=== PATIENT | male | born 1945 | race Caucasian/White ===

== ENCOUNTER → 2023-04-27 13:07 | Outpatient (REF) | payer BC, SELFPAY ==
[2023-04-27 14:33] LABS: % Basophils 0.9 % (0-2); % Eosinophils 3.5 % (0-6); % Immature Granulocytes 0.2 % (0-0.5); % Lymphocytes 23.1 % (20.5-51.1); % Monocytes 9.7 % (1.7-9.3); % Neutrophils 62.6 % (42.2-75.2); Absolute Basophils 0.1 10^3/uL (0-0.2); Absolute Eosinophils 0.3 10^3/uL (0-0.7); Absolute Lymphocytes 2.1 10^3/uL (1.2-3.4); Absolute Monocytes 0.9 10^3/uL (0.1-0.6); Absolute Neutrophils 5.6 10^3/uL (1.4-6.5); Hemoglobin 14.8 g/dL (13.0-18.0); Mean Corp Hgb Conc. 33.6 g/dL (33.0-37.0); Mean Corpuscular Hgb 31.3 pg (27.0-31.0); Nucleated Red Blood Cells % 0 % (-); Platelet Count 200 10^3/uL (130-400); Red Blood Cell Count 4.73 10^6/uL (4.70-6.10); Red Cell Dist. Width 13.5 % (11.5-14.5); White Blood Cell Count 8.9 10^3/uL (4.8-10.8)
[2023-04-27 15:53] LABS: ALT (SGPT) 21 U/L (0-50); AST (SGOT) 31 U/L (17-59); Albumin 4.4 g/dl (3.5-5.0); Alkaline Phosphatase 80 U/L (38-126); Blood Urea Nitrogen 16 mg/dl (9-20); Calcium 9.5 mg/dl (8.4-10.2); Carbon Dioxide 29 mmol/L (22-30); Chloride 100 mmol/L (98-107); Glucose 98 mg/dl (70-99); HDL Cholesterol 53 mg/dl; LDL Cholesterol, Calculated 60 mg/dl; Potassium 4.4 mmol/L (3.5-5.1); Sodium 137 mmol/L (135-145); Total Bilirubin 0.8 mg/dl (0.2-1.3); Total Cholesterol 125 mg/dl (50-199); Total Protein 7.2 g/dl (6.3-8.2); Triglyceride 63 mg/dl (10-149); Very Low Density Lipoprotein 12 mg/dl (0-30); eGFR > 60.00
[2023-04-27 16:20] LABS: PSA, Total - Screen 1.24 ng/ml (0.0-4.0)
== END ==
LOC: REG 13:07
PROVIDERS: ATTENDING PHYSICIAN Family Medicine
DX: I10 Essential (primary) hypertension (principal); J44.9 Chronic obstructive pulmonary disease, unspecified; E78.00 Pure hypercholesterolemia, unspecified; I73.9 Peripheral vascular disease, unspecified
CPT/HCPCS: 36415; 80053; 80061; 85025; G0103

== ENCOUNTER 2023-08-11 04:42 | Emergency (ER) | payer BC, SELFPAY ==
[2023-08-11 04:45] VITALS: BP 157/69
[2023-08-11 05:07] VITALS: BP 120/62
[2023-08-11 05:19] LABS: % Basophils 0.8 % (0-2); % Eosinophils 2.3 % (0-6); % Immature Granulocytes 0.4 % (0-0.5); % Lymphocytes 8.5 % (20.5-51.1); % Monocytes 11.7 % (1.7-9.3); % Neutrophils 76.3 % (42.2-75.2); Absolute Basophils 0.1 10^3/uL (0-0.2); Absolute Eosinophils 0.2 10^3/uL (0-0.7); Absolute Lymphocytes 0.7 10^3/uL (1.2-3.4); Absolute Neutrophils 6.5 10^3/uL (1.4-6.5); Hematocrit 37.6 % (39.0-52.0); Hemoglobin 13.6 g/dL (13.0-18.0); Mean Corp Hgb Conc. 36.2 g/dL (33.0-37.0); Mean Corpuscular Hgb 31.5 pg (27.0-31.0); Mean Platelet Volume 9.7 fL (7.4-10.4); Nucleated Red Blood Cells % 0 % (-); Platelet Count 183 10^3/uL (130-400); Red Blood Cell Count 4.32 10^6/uL (4.70-6.10); White Blood Cell Count 8.6 10^3/uL (4.8-10.8)
--- NOTE | 2023-08-11 05:20 | ED.GENMED ---
History of Present Illness
<Isia Garcia MD, Resident - Last Filed: 08/11/23 06:15>
General
Chief Complaint: Weakness
Source: patient
Time Seen by Provider: 08/11/23 05:08
History of Present Illness
History of Present Illness:
77 year old male with PMH HTN, HLD, PE, tobacco user presented to the ED with c/o fever, fatigue which started this morning. He drove himself to . Patient states that all day he was smoking cigarettes and drinking tea with no energy to move or do
anything at home. He has been smoking for over 50 years. His temp at home was 102 F. He reports of barking cough which has been ongoing for couple weeks. Patient has not been diagnosed with COPD as he states. He has a history of PE in right lung
in 2018 for which he was started on Eliquis for 3 months. He is currently not on anticoagulants. He takes baby ASA. Patient did not take a Covid test at home.
Past History
<Isai Garcia MD, Resident - Last Filed: 08/11/23 06:15>
Past History
ED Past Medical History: HTN, Other (heart murmur) and Other (joint pain)
Social History
Tobacco: Smoker
Alcohol: Occasional
Drug: None
Personal: Single
Living: other (With a friend)
Employment: Retired
Review of Systems
<Isai Garcia MD, Resident - Last Filed: 08/11/23 06:15>
Review of Systems
Constitutional: Reports fever and fatigue
Respiratory: Reports cough
Phy Exam
<Isai Garcia MD, Resident - Last Filed: 08/11/23 06:15>
General Physical Exam
General Presentation: no apparent distress
General Mental: alert
Cardiovascular Exam
Cardiovascular Exam: regular rate/rhythm
Pulmonary Exam
Pulmonary Exam: no rales, no crackles and decreased breath sounds
Course
<Isai Garcia MD, Resident - Last Filed: 08/11/23 06:15>
Orders/Labs/Results
Orders:
Orders
08/11/23 04:57
EKG [Electrocardiogram (*1)] Urgent
Reason for Study: Chest Pain
EKG- Treatment ONCE
08/11/23 05:00
Cardiac Monitoring- Treatment ONCE
IV Insert/Care/Rem.- Treatment PRN
CR Chest - 2 Views Urgent
Comment:
Reason For Exam: suspected infection
O2 Therapy [RESP] Urgent
Titrate/Wean O2 to maintain O2 sat greater than (%): 93
Special Instructions: TO MAINTAIN CONTINUOUS O2 SATS > OR = 93%
Pulse Ox/cont/shift [RESP] Urgent
Quantity: 1
Special Instructions: CONTINUOUS
08/11/23 05:09
Complete Blood Count/With Diff Urgent
Comprehensive Metabolic Panel Urgent
Lactic Acid Q4H
Comment: ON ICE, CANCEL 2ND ORDER IF FIRST LACTIC ACID LEVEL <2
Blood Culture Urgent
OWEN Source: Blood/Venous
Specimen Description:
08/11/23 05:10
COVID-19 Antigen Urgent
Source: Nasal Swab
Abnormal Lab Results
08/11/23 08/11/23
05:09 05:10
RBC 4.32 L 10^6/uL
(4.70-6.10)
Hct 37.6 L %
(39.0-52.0)
MCH 31.5 H pg
(27.0-31.0)
Absolute Lymphs (auto) 0.7 L 10^3/uL
(1.2-3.4)
Absolute Monos (auto) 1.0 H 10^3/uL
(0.1-0.6)
Neutrophils % 76.3 H %
(42.2-75.2)
Lymphocytes % 8.5 L %
(20.5-51.1)
Monocytes % 11.7 H %
(1.7-9.3)
Sodium 133 L mmol/L
(135-145)
Glucose 107 H mg/dl
(70-99)
SARS-CoV-2 Antigen Positive A
(Negative)
08/11/23 05:09
08/11/23 05:09
Vital Signs
Initial and Last Documented VS:
Initial Vital Signs
Temp Pulse Resp BP Pulse Ox
99.6 F 98 20 157/69 95
08/11/23 04:45 08/11/23 04:45 08/11/23 04:45 08/11/23 04:45 08/11/23 04:45
Last Documented Vital Signs
Temp Pulse Resp BP Pulse Ox
99.9 F 82 16 132/60 96
08/11/23 05:21 08/11/23 05:46 08/11/23 05:46 08/11/23 06:03 08/11/23 05:13
<Lisa Mayes, DO - Last Filed: 08/11/23 06:18>
Orders/Labs/Results
Orders:
Orders
08/11/23 04:57
EKG [Electrocardiogram (*1)] Urgent
Reason for Study: Chest Pain
EKG- Treatment ONCE
08/11/23 05:00
Cardiac Monitoring- Treatment ONCE
IV Insert/Care/Rem.- Treatment PRN
CR Chest - 2 Views Urgent
Comment:
Reason For Exam: suspected infection
O2 Therapy [RESP] Urgent
Titrate/Wean O2 to maintain O2 sat greater than (%): 93
Special Instructions: TO MAINTAIN CONTINUOUS O2 SATS > OR = 93%
Pulse Ox/cont/shift [RESP] Urgent
Quantity: 1
Special Instructions: CONTINUOUS
08/11/23 05:09
Complete Blood Count/With Diff Urgent
Comprehensive Metabolic Panel Urgent
Lactic Acid Q4H
Comment: ON ICE, CANCEL 2ND ORDER IF FIRST LACTIC ACID LEVEL <2
Blood Culture Urgent
OWEN Source: Blood/Venous
Specimen Description:
08/11/23 05:10
COVID-19 Antigen Urgent
Source: Nasal Swab
Abnormal Lab Results
08/11/23 08/11/23
05:09 05:10
RBC 4.32 L 10^6/uL
(4.70-6.10)
Hct 37.6 L %
(39.0-52.0)
MCH 31.5 H pg
(27.0-31.0)
Absolute Lymphs (auto) 0.7 L 10^3/uL
(1.2-3.4)
Absolute Monos (auto) 1.0 H 10^3/uL
(0.1-0.6)
Neutrophils % 76.3 H %
(42.2-75.2)
Lymphocytes % 8.5 L %
(20.5-51.1)
Monocytes % 11.7 H %
(1.7-9.3)
Sodium 133 L mmol/L
(135-145)
Glucose 107 H mg/dl
(70-99)
SARS-CoV-2 Antigen Positive A
(Negative)
08/11/23 05:09
08/11/23 05:09
Vital Signs
Initial and Last Documented VS:
Initial Vital Signs
Temp Pulse Resp BP Pulse Ox
99.6 F 98 20 157/69 95
08/11/23 04:45 08/11/23 04:45 08/11/23 04:45 08/11/23 04:45 08/11/23 04:45
Last Documented Vital Signs
Temp Pulse Resp BP Pulse Ox
99.9 F 82 16 132/60 96
08/11/23 05:21 08/11/23 05:46 08/11/23 05:46 08/11/23 06:03 08/11/23 05:13
<Lisa Mayes DO - Last Filed: 08/11/23 06:18>
*Radiology
Radiology exam reviewed: preliminary read by ED provider (Chest x-ray is unremarkable.)
*Pulse Oximetry
Patient hypoxic: no
*EKG
Interpreted by ED Provider?: Yes
Interpretation: normal
Comparison EKG: no changes (Unchanged from previous November 2017)
Rate: normal
Rhythm: sinus and PVC's
[place]: left axis deviation (Borderline left axis deviation)
Interval: normal interval
QRS Pattern: normal QRS
Ischemia: no ischemia
*Solar Sales Manager Interpretation
Rate: normal
Interpretation: normal
Rhythm: sinus
*Critical Care Note
Total Time (30-74mins, 75-104mins- exclusive of procedures): Not Applicable
<Isai Garcia MD, Resident - Last Filed: 08/11/23 06:15>
Update Note
Update Note:
COVID positive. Ordered CXR to rule out PNA as there were decreased breath sounds and rales on the right. Trial of Paxlovid and albuterol inhaler. Advise patient home quarantine, also inform his friend that he met yesterday for him to get tested
with home covid test.
ED Attending Note
<Isai Garcia MD, Resident - Last Filed: 08/11/23 06:15>
-
Portions of this chart may have been created with voice recognition software.� Occasional wrong word or��sound alike� substitutions may have occurred due to the inherent limitations of voice recognition software.
<Lisa Mayes DO - Last Filed: 08/11/23 06:18>
ED Attending Note
Patient seen and examined by attending physician: Yes
I performed a history and physical exam of patient and discussed management with resident, I reviewed resident's note and agree with documented findings and plan of care.: Yes
ED Attending Note:
77-year-old gentleman who resides at home independently, chronic smoker, history of hypertension presents with cough, congestion that began 1 to 2 days ago with onset of fever tonight. He complains of anterior chest discomfort that is only noted
with coughing.
He has remote history of PE 2018, treated with 3-month course of anticoagulant which has since been discontinued. No recurrent thromboembolism. No recent travel. No known contacts with similar symptoms.
No history of COPD nor chronic lung disease.
He does admit that he has no air conditioning at home and weather is currently quite hot and humid. Feeling markedly improved since arrival to the ED.
77-year-old gentleman appears his stated age, bright and alert, pleasant, appears in no acute distress. Respirations are easy and nonlabored. Rare brief dry cough is noted. Low-grade fever 99.9 �F noted.
Lungs have mildly decreased breath sounds at bases with scant dry rales left base and left anterior lung field.
History and exam concerning for community-acquired pneumonia, other consideration is COVID-19, viral URI/bronchitis, COPD.
Labs are pending as well as COVID-19 antigen. Will check chest x-ray.
08/11/2023 0612 AM
COVID-19 antigen is positive.
Labs are unremarkable.
Chest x-ray shows clear lung teague. No infiltrate nor evidence of CHF.
Will treat with course of Paxlovid. Normal renal function. No conflict with current medications.
Will add albuterol inhaler for as needed cough, shortness of breath.
Discussed importance of remaining well-hydrated on a daily basis.
Home quarantine per 5 days from symptom onset.
Return precautions discussed.
Discharge Plan
Departure
Patient Disposition: Home (Routine Discharge)
Date of Disposition: 08/11/23
Time of Disposition: 06:03
Patient with high blood pressure during this ER visit?: No
Condition: Good
Covid-19: Confirmed COVID-19
Discharge Problem:
COVID-19
Instructions: COVID-19 in adults - Discharge instructions
Prescriptions:
New
Paxlovid 150 mg x 2- 100 mg Tablet
See Rx Instructions .ROUTE .COMPLEX 5 Days Qty: 30 0RF
Rx Instructions:
1 dose PO BID
Take Nirmatrelvir 300 mg (2 tabs) and Ritonavir 100 mg (1 tab) by mouth twice a day in AM and PM for 5 days.
albuterol sulfate 90 mcg/actuation aerosol powdr breath activated
2 inh inhalation Q6H PRN (Reason: shortness of breath or wheezing) Qty: 1 0RF
No Action
lisinopril [Zestril] 20 MG tablet
40 mg PO DAILY
hydrochlorothiazide 12.5 MG tablet
12.5 mg PO DAILY@2000 0RF
aspirin 81 mg Capsule
81 mg PO DAILY
amlodipine
1 tab PO DAILY
Referrals:
Chance Medina MD [Family Provider] - Call in 1-3 days for appt
Interventions
Interventions:
*Risk Screen - Suicide Last Done: 08/11/23 04:45
*General Assessment Last Done: 08/11/23 04:45
*Neglect/Abuse Screening Last Done: 08/11/23 04:45
ED- Fall Risk Assessment Last Done: 08/11/23 04:45
*ED COVID-19 Vaccine History Last Done: 08/11/23 04:45
ED- Cardiac Assessment Last Done: 08/11/23 05:13
ED- Neurological Assessment Last Done: 08/11/23 05:13
ED- Pulmonary Assessment Last Done: 08/11/23 05:13
Discharge Date and Time
Print Language: [place]
[2023-08-11 05:28] LABS: COVID-19 Antigen Positive (Negative)
[2023-08-11 05:49] LABS: Lactic Acid 1.3 mmol/L (0.7-2.0)
[2023-08-11 05:51] LABS: ALT (SGPT) 16 U/L (0-50); AST (SGOT) 26 U/L (17-59); Albumin 4.3 g/dl (3.5-5.0); Alkaline Phosphatase 83 U/L (38-126); Blood Urea Nitrogen 13 mg/dl (9-20); Calcium 9.4 mg/dl (8.4-10.2); Carbon Dioxide 23 mmol/L (22-30); Chloride 100 mmol/L (98-107); Glucose 107 mg/dl (70-99); Potassium 3.8 mmol/L (3.5-5.1); Sodium 133 mmol/L (135-145); Total Bilirubin 0.6 mg/dl (0.2-1.3); Total Protein 6.8 g/dl (6.3-8.2); eGFR > 60.00
[2023-08-11 06:03] VITALS: BP 132/60
== END 2023-08-11 06:44 | disposition home or self-care (01) ==
LOC: EMR 04:42
PROVIDERS: Student in an Organized Health Care Education/Training Program; EMERGENCY PHYSICIAN Emergency Medicine; FAMILY PHYSICIAN Family Medicine
DX: U07.1 COVID-19 (principal); I10 Essential (primary) hypertension; R01.1 Cardiac murmur, unspecified; F17.210 Nicotine dependence, cigarettes, uncomplicated; Z11.52 Encounter for screening for COVID-19; Z86.711 Personal history of pulmonary embolism
CPT/HCPCS: 99283; 71046; 80053; 83605; 85025; 87040; 87811; 93005

== ENCOUNTER → 2023-10-01 15:03 | Outpatient (REF) | payer BC, SELFPAY | LOC: REG 15:03 | PROVIDERS: ATTENDING PHYSICIAN Family Medicine | DX: R06.02 Shortness of breath (principal) | CPT/HCPCS: 71046 ==

== ENCOUNTER 2023-10-19 05:34 | Emergency (ER) | payer BC, SELFPAY ==
[2023-10-19 05:39] VITALS: BP 169/83
[2023-10-19 06:14] VITALS: BMI 29.8
--- NOTE | 2023-10-19 06:20 | ED.GENMED ---
History of Present Illness
General
Chief Complaint: Breathing Problem
Source: patient
Exam Limitations: none
Time Seen by Provider: 10/19/23 06:01
Nursing documentation reviewed up to this point in time: agreed with
History of Present Illness
History of Present Illness:
Patient with persistent intermittent cough since COVID-19 infection in August 2023, presents to ED with worsening cough and shortness of breath over the past 2 days. Denies fever or chills. Denies nausea, vomiting, or diarrhea. Denies headache.
Patient also reports decreased appetite. Patient is a former smoker, who quit smoking in August when he was infected with COVID-19. Denies drinking alcohol. Denies dizziness.
Past History
Past History
ED Past Medical History: HTN, Other (heart murmur) and Other (joint pain)
Social History
Tobacco: Smoker
Alcohol: Occasional
Drug: None
Personal: Single
Living: other (With a friend)
Employment: Retired
Review of Systems
Review of Systems
Allergies reviewed?: Yes
All Other Systems: ROS reviewed and negative except as documented in HPI and ROS
Constitutional: Reports no symptoms; Denies fever
EENT: Reports no symptoms
Respiratory: Reports cough and trouble breathing
Cardiac: Reports no symptoms; Denies chest pain or palpitations
ABD/GI: Reports no symptoms; Denies vomiting or diarrhea
Musculoskeletal: Reports no symptoms
Skin: Reports no symptoms
Neurological: Reports no symptoms
Phy Exam
Physical Exam
Physical Exam:
Physical Exam
General: mild distress, not acutely ill. afebrile
Head: nc/at. eomi
Neck: supple. no meningeal signs.
Heart: s1/s2 regular rate and rhythm, no murmur. equal radial pulses.
Lungs: mild respiratory distress. diffuse wheezing bilaterally
Abdomen: normal bowel sounds. not tender.
Neuro: alert and oriented. no focal neurological deficits
Skin: no rash
Psychiatric: well kept. interactive and cooperative
Extremities: no edema. no calf tenderness
Scores
Heart Failure Risk
Heart Failure Risk Score: Not Applicable
Course
Orders/Labs/Results
Orders:
Orders
10/19/23 05:36
EKG- Treatment ONCE
10/19/23 05:47
EKG [Electrocardiogram (*1)] Urgent
Reason for Study: Shortness of Breath
EKG- Treatment ONCE
10/19/23 06:19
0.9% Sodium Chloride 500 ml [Nss] 500 ml IV BOLUS
Albuterol Nebs [Ventolin Nebules] 2.5 mg INH R NOW STA
Dexamethasone Sod Phosphate [Decadron] 10 mg IV NOW STA
Guaifenesin/Codeine Solution [Robitussin AC] 10 ml PO NOW STA
Ipratropium/Albuterol Sulfate [Duoneb] 3 ml INH R NOW STA
10/19/23 06:35
COVID-19 Antigen Urgent
Source: Nasal Swab
Complete Blood Count/With Diff Urgent
Comprehensive Metabolic Panel Urgent
D-Dimer Urgent
Magnesium Urgent
NT-proBNP Urgent
10/19/23 08:08
CR Chest - 2 Views Urgent
Comment:
Reason For Exam: cough/sob
Abnormal Lab Results
10/19/23
06:35
WBC 12.7 H 10^3/uL
(4.8-10.8)
RBC 4.51 L 10^6/uL
(4.70-6.10)
Hct 38.7 L %
(39.0-52.0)
Abs Immat Gran (auto) 0.1 H 10^3/uL
(0-0.05)
Absolute Neuts (auto) 8.4 H 10^3/uL
(1.4-6.5)
Absolute Monos (auto) 1.1 H 10^3/uL
(0.1-0.6)
Lymphocytes % 19.3 L %
(20.5-51.1)
D-Dimer 0.74 H ug/mlFEU
(0.00-0.50)
10/19/23 06:35
10/19/23 06:35
Vital Signs
Initial and Last Documented VS:
Initial Vital Signs
Temp Pulse Resp BP Pulse Ox
98.1 F 76 24 169/83 96
10/19/23 05:39 10/19/23 05:39 10/19/23 05:39 10/19/23 05:39 10/19/23 05:39
Last Documented Vital Signs
Temp Pulse Resp BP Pulse Ox
98.1 F 88 12 146/66 97
10/19/23 05:39 10/19/23 12:15 10/19/23 12:15 10/19/23 12:00 10/19/23 12:15
MDM/Problems Addressed
MDM/Problems Addressed:
History/exam concerning for acute bronchitis. However, with recent COVID infection, difficult to exclude potential component of long COVID syndrome. As such, pt will be referred to pulmonary for outpatient consultation. Discussed with (pulm)
- office to contact patient with an appt. In the meantime, as pt reports and appears much improved after treatment in ED, will start z-richie, prednisone, along with continual use of inhaler at home, until re-evaluation. Pt otherwise is afebrile,
hemodynamically stable and is without any acute respiratory distress, at time of discharge.
*EKG
Interpreted by ED Provider?: Yes
EKG Intrepretation Date: 10/19/23
Heart Rate: 67
Rate: normal
Rhythm: sinus
[place]: normal axis
Interval: normal interval
*Critical Care Note
Total Time (30-74mins, 75-104mins- exclusive of procedures): Not Applicable
ED Attending Note
-
Portions of this chart may have been created with voice recognition software.� Occasional wrong word or��sound alike� substitutions may have occurred due to the inherent limitations of voice recognition software.
Discharge Plan
Departure
Patient Disposition: Home (Routine Discharge)
Date of Disposition: 10/19/23
Time of Disposition: 12:22
Patient with high blood pressure during this ER visit?: Yes
Condition: Good
Discharge Problem:
Acute bronchitis
Instructions: Acute Bronchitis, Adult (DC)
Prescriptions:
New
prednisone 50 mg tablet
50 mg PO DAILY Qty: 3 0RF
azithromycin [Zithromax Z-Richie] 250 mg tablet
250 mg PO DAILY 5 Days Qty: 6 0RF
No Action
lisinopril [Zestril] 20 MG tablet
40 mg PO DAILY
hydrochlorothiazide 12.5 MG tablet
12.5 mg PO DAILY@2000 0RF
aspirin 81 mg Capsule
81 mg PO DAILY
amlodipine
1 tab PO DAILY
Paxlovid 150 mg x 2- 100 mg Tablet
See Rx Instructions .ROUTE .COMPLEX 5 Days Qty: 30 0RF
Rx Instructions:
1 dose PO BID
Take Nirmatrelvir 300 mg (2 tabs) and Ritonavir 100 mg (1 tab) by mouth twice a day in AM and PM for 5 days.
albuterol sulfate 90 mcg/actuation aerosol powdr breath activated
2 inh inhalation Q6H PRN (Reason: shortness of breath or wheezing) Qty: 1 0RF
Referrals:
Chance Medina MD [Family Provider] -
Palak Monroy DO [Active] -
Activity Restrictions/Additional Instructions:
As discussed, please follow-up with your primary care physician and/or referred teletypesetter operator for reevaluation. Your prescriptions have been sent electronically to [facility] pharmacy in [place].
Interventions
Interventions:
*Risk Screen - Suicide Last Done: 10/19/23 05:35
*General Assessment Last Done: 10/19/23 05:39
*Neglect/Abuse Screening Last Done: 10/19/23 05:39
ED- Fall Risk Assessment Last Done: 10/19/23 06:14
*ED COVID-19 Vaccine History Last Done: 10/19/23 05:39
*Nursing Disposition Last Done: 10/19/23 12:42
ED- Cardiac Assessment Last Done: 10/19/23 06:14
ED- Pulmonary Assessment Last Done: 10/19/23 06:14
Discharge Date and Time
Discharge Date/Time: 10/19/23 12:50
Print Language: CITIZEN OF [place]
[2023-10-19] MEDS: ROBITUSSIN AC 10 ML PO (06:23)
[2023-10-19] MEDS: NSS 500 IV (06:29)
[2023-10-19] MEDS: DECADRON 10 MG IV (06:32)
[2023-10-19 06:54] LABS: % Basophils 0.6 % (0-2); % Eosinophils 4.5 % (0-6); % Immature Granulocytes 0.5 % (0-0.5); % Lymphocytes 19.3 % (20.5-51.1); % Monocytes 8.9 % (1.7-9.3); % Neutrophils 66.2 % (42.2-75.2); Absolute Basophils 0.1 10^3/uL (0-0.2); Absolute Eosinophils 0.6 10^3/uL (0-0.7); Absolute Immature Granulocytes 0.1 10^3/uL (0-0.05); Absolute Lymphocytes 2.4 10^3/uL (1.2-3.4); Absolute Monocytes 1.1 10^3/uL (0.1-0.6); Absolute Neutrophils 8.4 10^3/uL (1.4-6.5); Hematocrit 38.7 % (39.0-52.0); Hemoglobin 13.8 g/dL (13.0-18.0); Mean Corp Hgb Conc. 35.7 g/dL (33.0-37.0); Mean Corpuscular Hgb 30.6 pg (27.0-31.0); Mean Corpuscular Volume 85.8 fL (80.0-94.0); Mean Platelet Volume 9.7 fL (7.4-10.4); Nucleated Red Blood Cells % 0 % (-); Platelet Count 222 10^3/uL (130-400); Red Blood Cell Count 4.51 10^6/uL (4.70-6.10); Red Cell Dist. Width 13.4 % (11.5-14.5); White Blood Cell Count 12.7 10^3/uL (4.8-10.8)
[2023-10-19 07:09] LABS: ALT (SGPT) 20 U/L (0-50); AST (SGOT) 31 U/L (17-59); Albumin 4.6 g/dl (3.5-5.0); Alkaline Phosphatase 74 U/L (38-126); Blood Urea Nitrogen 15 mg/dl (9-20); Carbon Dioxide 26 mmol/L (22-30); Chloride 100 mmol/L (98-107); Estimated Creatinine Clearance 81 ml/min; Glucose 98 mg/dl (70-99); Magnesium 1.9 mg/dl (1.6-2.3); Potassium 3.9 mmol/L (3.5-5.1); Sodium 139 mmol/L (135-145); Total Bilirubin 0.7 mg/dl (0.2-1.3); Total Protein 7.2 g/dl (6.3-8.2); eGFR > 60.00
[2023-10-19 07:13] LABS: COVID-19 Antigen Negative (Negative); D-Dimer 0.74 ug/mlFEU (0.00-0.50)
[2023-10-19 07:25] LABS: NT-proBNP 82.4 pg/ml
[2023-10-19] MEDS: DUONEB 3 ML INH (07:33)
[2023-10-19] MEDS: VENTOLIN NEBULES 2.5 MG INH (07:33)
[2023-10-19 07:37] VITALS: BP 135/68
[2023-10-19 08:00] VITALS: BP 130/66
[2023-10-19 10:50] VITALS: BP 137/65
[2023-10-19 11:00] VITALS: BP 152/69
[2023-10-19 12:00] VITALS: BP 146/66
== END 2023-10-19 12:50 | disposition home or self-care (01) ==
LOC: EMR 05:34
PROVIDERS: EMERGENCY PHYSICIAN Emergency Medicine; FAMILY PHYSICIAN Family Medicine
DX: J20.9 Acute bronchitis, unspecified (principal); I10 Essential (primary) hypertension; R01.1 Cardiac murmur, unspecified; F17.200 Nicotine dependence, unspecified, uncomplicated
CPT/HCPCS: 99284; 94640; 96374; 96361; 71046; 80053; 83735; 83880; 85025; 85379; 87811; 93005

== ENCOUNTER → 2024-02-25 11:01 | Outpatient (REF) | payer BC, SELFPAY ==
[2024-02-25 11:43] LABS: Erythrocyte Sed Rate 5 mm/hour (0-20)
== END ==
LOC: REG 11:01
PROVIDERS: ATTENDING PHYSICIAN Physician Assistant
DX: M25.511 Pain in right shoulder (principal); M25.512 Pain in left shoulder; M25.551 Pain in right hip; M25.552 Pain in left hip
CPT/HCPCS: 36415; 85652; 86140

== ENCOUNTER → 2024-04-23 13:40 | Outpatient (REF) | payer BC, SELFPAY ==
[2024-04-23 14:48] LABS: % Basophils 0.9 % (0-2); % Immature Granulocytes 0.4 % (0-0.5); % Lymphocytes 24.2 % (20.5-51.1); % Monocytes 9.9 % (1.7-9.3); % Neutrophils 60.6 % (42.2-75.2); Absolute Basophils 0.1 10^3/uL (0-0.2); Absolute Eosinophils 0.3 10^3/uL (0-0.7); Absolute Monocytes 0.8 10^3/uL (0.1-0.6); Hematocrit 41.9 % (39.0-52.0); Mean Corp Hgb Conc. 33.4 g/dL (33.0-37.0); Mean Corpuscular Hgb 29.7 pg (27.0-31.0); Mean Platelet Volume 9.9 fL (7.4-10.4); Nucleated Red Blood Cells % 0 % (-); Platelet Count 215 10^3/uL (130-400); Red Blood Cell Count 4.71 10^6/uL (4.70-6.10); Red Cell Dist. Width 13.3 % (11.5-14.5); White Blood Cell Count 8.2 10^3/uL (4.8-10.8)
[2024-04-23 15:54] LABS: ALT (SGPT) 24 U/L (0-50); AST (SGOT) 28 U/L (17-59); Albumin 4.7 g/dl (3.5-5.0); Alkaline Phosphatase 98 U/L (38-126); Blood Urea Nitrogen 17 mg/dl (9-20); Calcium 9.6 mg/dl (8.4-10.2); Carbon Dioxide 27 mmol/L (22-30); Chloride 99 mmol/L (98-107); Glucose 92 mg/dl (70-99); HDL Cholesterol 58 mg/dl; LDL Cholesterol, Calculated 69 mg/dl; Potassium 3.9 mmol/L (3.5-5.1); Sodium 136 mmol/L (135-145); Total Bilirubin 0.9 mg/dl (0.2-1.3); Total Cholesterol 150 mg/dl (50-199); Total Protein 7.6 g/dl (6.3-8.2); Triglyceride 115 mg/dl (10-149); Very Low Density Lipoprotein 23 mg/dl (0-30); eGFR > 60.00
== END ==
LOC: REG 13:40
PROVIDERS: ATTENDING PHYSICIAN Family Medicine
DX: R06.02 Shortness of breath (principal); I10 Essential (primary) hypertension; J44.9 Chronic obstructive pulmonary disease, unspecified
CPT/HCPCS: 36415; 80053; 80061; 85025

== ENCOUNTER → 2024-07-08 10:45 | Outpatient (REF) | payer BC, SELFPAY ==
[2024-07-08 11:36] LABS: Erythrocyte Sed Rate 14 mm/hour (0-20)
[2024-07-10 22:42] LABS: CCP Antibody IgG/IgA 4 Units (0-19)
== END ==
LOC: REG 10:45
PROVIDERS: ATTENDING PHYSICIAN Physician Assistant; FAMILY PHYSICIAN Family Medicine
DX: M25.50 Pain in unspecified joint (principal); M35.3 Polymyalgia rheumatica; M79.643 Pain in unspecified hand
CPT/HCPCS: 36415; 85652; 86140; 86200; 86430

== ENCOUNTER → 2024-10-27 14:31 | Outpatient (REF) | payer BC, SELFPAY ==
[2024-10-27 16:16] LABS: C-Reactive Protein < 5.00 mg/L (0.0-10.00)
== END ==
LOC: REG 14:31
PROVIDERS: ATTENDING PHYSICIAN Internal Medicine; FAMILY PHYSICIAN Family Medicine
DX: M35.3 Polymyalgia rheumatica (principal)
CPT/HCPCS: 36415; 85652; 86140